=== PATIENT | female | born 1965 | race Caucasian/White ===

== ENCOUNTER 2021-11-27 11:52 | Outpatient (CLI) | payer BC, SELFPAY ==
--- NOTE | ~2021-11-27 | MM_ITS ---
EXAMINATION: MM screening melodie BI w debbie HISTORY: Screening TECHNIQUE: Craniocaudal and mediolateral oblique 3-D tomosynthesis images were obtained and synthetic 2-D images were generated. CAD analysis was submitted and interpreted. COMPARISON: Comparison to multiple prior studies sequentially, with oldest reviewed study dated 03/2012. BREAST PARENCHYMAL COMPOSITION: Breast composed of scattered areas of fibroglandular density FINDINGS: There is a new focal mass in the upper outer quadrant of the right breast with associated c alcifications. The left breast is stable without evidence for malignancy. IMPRESSION: 1. New right breast mass with associated indeterminate calcifications. 2. Additional mammographic views and possible breast ultrasound are recommended. BI-RADS Category 0: Incomplete: Needs additional imaging evaluation. Reviewed, dictated and finalized at location A. IMPRESSION: 1. New right breast mass with associated indeterminate calcifications. 2. Additional mammographic views and possible breast ultrasound are recommended . BI-RADS Category 0: Incomplete: Needs additional imaging evaluation.
== END 2021-11-27 11:53 | disposition home or self-care (01) ==
DX: Z12.31 Encounter for screening mammogram for malignant neoplasm of breast (principal); R92.8 Other abnormal and inconclusive findings on diagnostic imaging of breast
CPT/HCPCS: 77063; 77067

== ENCOUNTER 2021-12-14 11:08 | Outpatient (CLI) | payer BC, SELFPAY ==
--- NOTE | ~2021-12-14 | MM_ITS ---
EXAMINATION: MM diagnostic mammo unilat RT HISTORY: New right breast mass with calcifications reported on November 27, 2021 screening mammogram TECHNIQUE: Additional 3-D tomosynthesis images of the right breast were performed and synthetic 2-D i mages were generated. CAD analysis was submitted and interpreted. COMPARISON: 11/27/2021, 04/17/2018bilateral screening mammogram examinations FINDINGS: There is a 4 mm circumscribed mass with a calcifications relatively characteristic for fibr oadenoma. The mammographic appearance is benign. IMPRESSION: 1. BI-RADS code right 2: Benign 2. Routine annual mammographic screening is recommended. BI-RADS Category 2: Benign finding(s). Reviewed, dictated and finalized at location A.
== END 2021-12-14 11:09 | disposition home or self-care (01) ==
DX: R92.8 Other abnormal and inconclusive findings on diagnostic imaging of breast (principal)
CPT/HCPCS: 77065

== ENCOUNTER 2023-11-22 16:33 | Outpatient (CLI) | payer OTHER, SELFPAY ==
--- NOTE | ~2023-11-22 | MM_ITS ---
EXAMINATION: MM screening melodie BI w debbie HISTORY: Screening mammogram TECHNIQUE: Craniocaudal and mediolateral oblique 3-D tomosynthesis images were obtained and synthetic 2-D images were generated. CAD analysis was submitted and interpreted. COMPARISON: December 14, 2021 diagnostic right mammogram November 27, 2021, 04/17/2018 bilateral screening mammogram examinations BREAST PARENCHYMAL COMPOSITION: There are scattered areas of fibroglandular density. FINDINGS: Bilateral benign calcifications. There is no evidence of suspicious mass, calcification, or architectural distortion to suggest malignancy in either breast. There has been no suspicious interv al change. IMPRESSION: 1. No mammographic evidence of malignancy. 2. Recommend routine screening mammography in one year. BI-RADS Category 2: Benign finding(s). Reviewed, dictated and finalized at location A.
== END 2023-11-22 16:34 | disposition home or self-care (01) ==
LOC: ANHIMG 16:48
DX: Z12.31 Encounter for screening mammogram for malignant neoplasm of breast (principal)
CPT/HCPCS: 77063; 77067

== ENCOUNTER 2025-04-24 13:50 | Outpatient (CLI) | payer OTHER, SELFPAY ==
--- OUTSIDE RECORDS SUMMARY | 2009-05-22 08:00 | XMS_ITS | Continuity of Care Document ---
Author Organization [facility] Address [address] [place] [address] Phone Care Team Providers Care Motel Front Desk Attendant Name Role Phone Benjie Alanis MD Unavailable Unavailable Procedures Procedure Date Inject, spine, cervical/thoracic 2008 Fluoro For Spine Injections Office[place] visit[place], [facility] Inject, spine, cervical/thoracic 2008 Fluoro For Spine Injections Office/outpatient visit,[place], [facility] [place] Advance Directives Directive Yes / No Effective Date File Name No Information Encounters Encounter Description Practice Location Reason(s) For Visit Diagnoses Date Provider Providers Copied on Encounter [facility], [address], [id number], tel:[phone] [facility] No Information 9 Annabelle Waldrop. 1050 [facility], [address], [id number] , [place]. tel: [phone] Office/outpat ient visit,est, mod [facility], [address], [id number], [place] tel:[phone] [facility] No Information 9 Annabelle aWldrop. [address], [id number] , [place]. tel: [phone] [facility], [address] [place] [address], [id number], tel:[phone] [facility] No Information 9 Annabelle Waldrop. [address] [facility], [address], [place], [place], [id number] , [place]. tel: [phone] Office/outpat ient visit,barney borjas [facility], [address] [facility] [place], [place], [id number], [place] [phone] [facility] Outpatient No Information 9 Annabelle Waldrop. 1050 [facility], [address], [place], [place], [id number] , [place]. tel: [phone] Family History Family Member Type Diagnosis Age At Onset No Information Payers Payer name Insurance type Covered libertarian ID Alissa willoughby(s) Neo Blue Cross Blue Shiel d [facility] [id number] Social History Type Description Quantity Date Captured [...]
--- NOTE | ~2025-04-24 | MM_ITS ---
EXAMINATION: screening [facility] BI w debbie INDICATION: Asymptomatic, referred for screening mammogram COMPARISON: 11/22/2023 through 12/13/2013 TECHNIQUE: Digital Breast Tomosynthesis CC, MLO views of Both breasts were obtained with computer-aided detection to assist in interpretation of the study. FINDINGS: There are scattered areas of fibroglandular density. There are regionally distributed calcifications that spans 2.3 cm in the superior lateral, middle third in the left breast which appears to have increased in the interval. There is a group of coarse calcifications in the inner central left breast there appears to have changed in the interval. Additional group of coarse calcification that spans 0.6 cm in a linear distribution is seen at posterior third in the superior slightly lateral left breast. Elsewhere, there are no mammographic features of malignancy. IMPRESSION: 1. Left breast Incompletely characterized multiple groups of calcifications. 2. No evidence of malignancy in the Right breast. RECOMMENDATION: Left breast Diagnostic mammogram with true lateral, and appropriate magnification views. BI-RADS Category 0: Incomplete: Needs additional imaging evaluation. Reviewed, dictated and finalized at location B. IMPRESSION: 1. Left breast Incompletely characterized multiple groups of calcifications. 2. No evidence of malignancy in the Right breast. RECOMMENDATION: Left breast Diagnostic mammogram with true lateral, and appropriate magnificati on views. BI-RADS Category 0: Incomplete: Needs additional imaging evaluation.
--- OUTSIDE RECORDS SUMMARY | 2025-04-24 14:01 | XMS_ITS | Clinical Summary ---
Author Organization [facility] Larry Oro Address [address] [place] [address] Phone Care Team Providers Care Medical Records Specialist Name Role Phone Rosi Wagoner PA-C Primary Care Provider + Allergies No known active allergies Medications lisinopril (PRINIVIL) 10 mg tablet Take 10 mg by mouth daily. Active levothyroxine 100 mcg tablet Take 100 mcg by mouth daily emt b. Active citalopram (CeleXA) 40 mg tablet Take 40 mg by mouth daily. Active HYDROcodone-acet aminophen (HYCET) 7.5-325 mg/15 mL SolutionIndicati ons:Morbid obesity (CMS/HCC) Take 15 mL by mouth every 6 hours as needed for Pain, Severe. Max Daily Amount: 60 mL 300 mL 06/18/2019 1:02 PM CDT 06/17/2019 Active ondansetron (ZOFRAN ODT) 4 mg Tablet, Rapid Dissolve Place 1 Tablet (4 mg) under tongue every 6 hours as needed for Nausea. 15 Tablet 06/18/2019 1:02 PM CDT 06/17/2019 Active Active Problems Problem Noted Date Diagnosed Date Fainting spell 06/18/2019 Gastroesophageal reflux disease without esophagi tis 06/17/2019 Essential hypertension 06/17/2019 Type 2 diabetes mellitus wit hout complication, without long-term current use of insulin 06/17/2019 Morbid obesity AV block, complete Immunizations Immunization Administration Dates Next Due (ADACEL/BOOSTRIX)(10 YR UP) TDAP VACCINE, 0.5ML, IM 05/26/2010 INFLUENZA VACCINE QUADRIVALE NT 6 MOS UP IM 05/28/2015 Influenza Seasonal Unspecifi ed Formulation IM 05/20/2019,2017,05/21/2013,2011 Influenza Vaccine Tri Split 4+ Im 2016 Family History Relation Name Status Comments Father Alive Mother Alive Social History Tobacco Use Types Packs/Day Years Used Date Smoking Tobacco: Never Smokeless Tobacco: Never Alcohol Use Standard Drinks/Week Comments No 0 (1 standard drink = 0.6 oz pur e alcohol) Comments No Sex and Gender Information Value Date Recorded Sex Assigned at Not on file Legal Sex Female 3:58 PM CDT Gender Identity Not on file Sexual Orientation Not on file Last Filed Vital Signs Vital Sign Reading Time Taken Comments Blood Pressure 136/84 06/20/2019 11:42 AM CDT Pulse 72 06/20/2019 11:42 AM CDT Temperature 36.9 C (98.5 F) 06/20/2019 11:42 AM CDT Respiratory Rate 13 06/20/2019 11:42 AM CDT Oxygen Saturation 95% 06/20/2019 11:42 AM CDT Inhaled Oxygen Concentration - - Weight 103.4 kg (228 lb) 06/20/2019 3:35 AM CDT Height 167.6 cm (5' 6) 06/17/2019 3:55 PM CDT Body Mass Index 36.8 06/17/2019 3:55 PM CDT Plan of Treatment Health Maintenance Due Date Last Done Comments DIABETES ANNUAL FOOT EXAM 1985 DIABETES ANNUAL RETINAL EXAM 1985 DIABETES MICROALBUMIN ANNUAL SCREEN 1985 LDL CHOLESTEROL ANNUAL 1985 HEPATITIS B VACCINES (1 of 3 - 19+ 3-dose series) 1986 BREAST CANCER SCREENING 2007 COLORECTAL SCREENING 2012 Colorectal Cancer Screening 2012 FIT-DNA Q 3 years 2012 FIT/FOBT Q 1 year 2012 Flex Sig/CT Colonography Q 5 years 2012 ZOSTER VACCINE (1 of 2) 2017 DIABETES HBA1C Q 6 MONTHS 12/10/2019 06/10/2019 DTAP/TDAP/TD VACCINES (2 - T d or Tdap) 05/26/2020 05/26/2010 INFLUENZA VACCINE (#1) 2025 9, 05/20/2019, 2017, Additional history exists Medical Devices Implanted Type Area Ordained Minister Device Identifier Shelf Expiration Date Model / Serial / Lot Seamguard Endogia 60 Prpl [id number] - [id number] Implanted:Qt y: 2 on 06/17/2019 by Rashawn George MD at [facility] N/A: Stomach [employer] 02/24/2022 [id number] [id number] / / [id number] Seamguard Endogia 60 Blck [id number] - [id number] Implanted:Qt y: 1 on 06/17/2019 by Rashawn George MD at [facility] N/A: Stomach [employer] 04/30/2022 [id number] 60B / / [id number] Seamguard Endogia 60 Blck [id number] - [id number] Implanted:Qt y: 1 on 06/17/2019 by Rashawn George MD at [facility] Biological N/A: Stomach [employer] 01/25/2022 [id number] [id number] / / [id number] Lead Pacemaker Solia S 60 [id number] Implanted:Qt y: 1 on 06/19/2019 by Zoe Vasquez MD Lead [employer] [id number] 02/24/2021 [id number] / [id number] / Description:RV lead Lead Pacemaker Solia S 53 [id number] Implanted:Qt y: 1 on 06/19/2019 by Zoe Vasquez MD Lead [employer] [id number] 03/27/2021 [id number] / [id number] / Description:RA lead Pacemaker Devangora 8 Ada [id number] - [id number] Implanted:Qt y: 1 on 06/19/2019 by Zoe Vasquez MD Pacemaker [employer] [id number] 09/27/2020 [id number] / [id number] / Description:Device Procedures Procedure Name Priority Date/Time Associated Diagnosis Comments HEMOGLOBIN A1C Routine 06/10/2019 6:53 AM CDT Morbid obesity (CMS/HCC) from Last 3 Months or Most Recently Relevant to Health Maintenance Results * (ABNORMAL) HEMOGLOBIN A1C (06/10/2019 6:53 AM CDT) HEMOGLOBIN A1C 6.3(H) <=5.6 % 06/10/2019 9:11 AM CDT [facility] - UNA EST. AVG GLUCOSE, A1C 134 mg/dL 06/10/2019 9:11 AM CDT [facility] Blood Venipuncture / Unknown 06/10/2019 6:53 AM CDT 06/10/2019 6:53 AM CDT Narrative [facility] - 06/10/2019 9:11 AM CDT HGB A1C INTERPRETATION NORMAL: <5.7% PRE-DIABETES: 5.7 - 6.4% DIABETES: 6.5% OR GREATER us Rashawn George MD CHEMISTRY ORDERABLES Final Resul t [facility] Secoo [facility] CLIA # [id number] [facility] [address] [place] [address] from Last 3 Months or Most Recently Relevant to Health Maintenance Insurance [facility] BLUE ACCESS/TRUE BLUE PPO [employer] Advance Directives For more information, please contact: [phone] * Full Code (Latest Code Status on File) Date Activated Date Inactivated Comments 06/19/2019 10:44 AM 06/20/2019 5:36 PM * Full Code Date Activated Date Inactivated Comments 06/17/2019 3:31 PM 06/19/2019 10:44 AM * Full Code Date Activated Date Inactivated Comments 06/17/2019 1:23 PM 06/17/2019 3:31 PM * Full Code Date Activated Date Inactivated Comments 06/17/2019 11:55 AM 06/17/2019 1:23 PM Care Teams Medical Records Specialist Relationship Specialty Start Date End Date Rosi Wagoner PA-C PCP - General Physician Preservationist 06/05/19
--- OUTSIDE RECORDS SUMMARY | 2025-04-24 14:01 | XMS_ITS | Encounter Summary ---
Author Organization [facility] Address [address] [place] [address] Care Team Providers Care Environmental Manager Name Role Phone Rosi Wagoner PA-C Primary Care Provider + Encounter Details Date Type Department Care Team (Late st Contact Info) Description 06/05/2019 Abstract [facility] Operating Room [address] [place] [address] Rashawn George MD [address] [place] [address] Social History Tobacco Use Types Packs/Day Years Used Date Smoking Tobacco: Never Alcohol Use Standard Drinks/Week Comments No 0 (1 standard drink = 0.6 oz pur e alcohol) Comments No Sex and Gender Information Value Date Recorded Sex Assigned at Not on file Legal Sex Female 3:58 PM CDT Gender Identity Not on file Sexual Orientation Not on file documented as of this encounter Plan of Treatment Not on file documented as of this encounter Visit Diagnoses Not on filedocumented in this encounter Care Teams Environmental Manager Relationship Specialty Start Date End Date Rosi Wagoner PA-C PCP - General Physician Reptile Farmer 06/05/19 documented as of this encounter
--- OUTSIDE RECORDS SUMMARY | 2025-04-24 14:01 | XMS_ITS | Clinical Summary ---
Author Organization [facility] Address [address] [place] [address] Care Team Providers Care Call Worker Person Name Role Phone Rosi Wagoner Primary Care Provider [phone] Allergies Active Allergy Reactions Criticality Noted Date Comments Adhesive Unknown 04/10/2023 Erythromycin Unknown 08/30/2023 Medications levothyroxine (SYNTHROID, LEVOTHROID) 100 mcg tablet TK 1 T PO QD 2 9 Active buPROPion XL (WELLBUTRIN XL) 150 mg 24 hr tablet bupropion HCl XL 150 mg 24 hr tablet, extended release TAKE 1 TABLET BY MOUTH EVERY DAY 3 Active venlafaxine XR (EFFEXOR-XR) 37.5 mg 24 hr capsule venlafaxine ER 37.5 mg capsule,extended release 24 hr TAKE 1 CAPSULE BY MOUTH EVERY DAY Active Wegovy 2.4 mg/0.75 mL auto-injector INJECT 2.4 MG UNDER THE SKIN ONCE WEEKY 3 Active Active Problems Problem Noted Date Diagnosed Date Nonalcoholic fatty liver 02/27/2024 History of hypertension 11/01/2023 Skin lesion 10/17/2023 Elevated liver enzymes 06/26/2023 Hyperkalemia 03/13/2023 Thyroid nodule 02/17/2023 Dizziness 01/02/2023 Reduced libido 01/02/2023 Abnormal finding on mammography 12/02/2021 Abnormal laboratory test result 11/24/2021 Dysthymia 10/13/2021 AV block, complete 06/21/2019 Complete atrioventricular block 06/21/2019 Presence of cardiac pacemaker 06/19/2019 Fainting spell 06/18/2019 Gastroesophageal reflux disease without esophagi tis 06/17/2019 Reflux esophagitis 03/05/2019 Abdominal pain 03/05/2019 Acute sinusitis 03/05/2019 Common cold 03/05/2019 Constipation 03/05/2019 Contact dermatitis 03/05/2019 Cough 03/05/2019 Mixed anxiety and depressive disorder 03/05/2019 Gaseous regurgitation 03/05/2019 Hyperlipidemia 03/05/2019 Hypothyroidism 03/05/2019 Idiopathic peripheral neuropathy 03/05/2019 Impacted cerumen 03/05/2019 Malaise and fatigue 03/05/2019 Medial epicondylitis 03/05/2019 Morbid obesity 03/05/2019 Open wound of foot excluding toes 03/05/2019 Pernicious anemia 03/05/2019 Refractory migraine with aura 03/05/2019 Vomiting 03/05/2019 Healthcare maintenance 03/05/2019 Type 2 diabetes mellitus without complication Essential hypertension 03/05/2018 Migraine 03/05/2018 Multiple nodules of lung 01/24/2018 Vitamin deficiency 08/03/2017 Knee pain 08/02/2017 Vitamin B deficiency 08/02/2017 Arthralgia of shoulder 08/12/2015 Pain of upper extremity 08/12/2015 Resolved Problems Problem Noted Date Diagnosed Date Resolved Date Type 2 diabetes mellitus wit hout complication, without long-term current use of insulin 01/22/2019 05/16/2023 Immunizations Immunization Administration Dates Next Due Influenza, Quadrivalent, Spl it, Intramuscular 05/21/2019,2017,2016,05/28,05/21/2013,05/22/2012 Influenza, Quadrivalent, Spl it, Preservative Free, Intramuscular 08/04/2021,06/23/2020 Influenza, Trivalent, IM (MDV) 9,2017,2016,05/21,05/22/2012 Influenza, Unspecified 2017,05/21/2013, Tdap 08/04/2021,05/26/2010 ZOSTER Recombinant 08/04/2021 Surgical History Surgery Date Site/Laterality Comments FLUORO GUIDED INJECTION SHOULDER LEFT 12/13/2018 Lef t HYSTERECTOMY 08/28/2005 - 08/27/2006 SLEEVE GASTROPLASTY 08/28/2018 - 08/27/2019 CARDIAC PACEMAKER PLACEMENT 08/28/2018 - 08/27/2019 Medical History Medical History Date Comments Hypertension Diabetes (HCC) Family History Medical History Relation Name Comments Arthritis Father Family history of arthritis - (Added by TW Conv) Diabetes Father Family history of diabetes mellitus - (Added by TW Conv) Hypertension Father Family history of hypertension - (Added by TW Conv) Heart disease Mother Family history of cardiac disorder - (Added by TW Conv) Heart disease Other 1 Family history of cardiac disorder - Relation: Grandparent (Added by TW Conv) Cancer Other 2 Family history of malignant neoplasm - Relation: Grandparent (Added by TW Conv) Relation Name Status Comments Father Mother Other 1 Other 2 Social History Tobacco Use Types Packs/Day Years Used Date Smoking Tobacco: Never Smokeless Tobacco: Never Tobacco Cessation:Counseling Given: Not Answered Alcohol Use Standard Drinks/Week Comments Yes 0 (1 standard drink = 0.6 oz pur e alcohol) AUDIT-C Answer Date Recorded Frequency of Alcohol Consumption Not on file 04/10/2023 Q2: How many drinks containi ng alcohol do you have on a typical day when you are drinking? Patient does not drink Frequency of Binge Drinking Not on file 03/28 Comments No Sex and Gender Information Value Date Recorded Sex Assigned at Not on file Legal Sex Female 5:59 AM BRUSH HOLDER INSPECTOR Gender Identity Not on file Sexual Orientation Not on file Obstetrics History Para Term AB IAB SAB Ectopic Multiple Livin g Live Births 2 2 2 2 2 Date Outcome GA Total Labor Labor/2nd/3rd Weight Sex Type Anes PTL Rimma A1 A5 Name Clin 1989 Term F CS-Un spec Living Complications:None 1993 Term M CS-Un spec Living Complications:None Last Filed Vital Signs Vital Sign Reading Time Taken Comments Blood Pressure 116/74 10/30/2024 4:20 PM BRUSH HOLDER INSPECTOR Pulse 68 10/30/2024 4:20 PM BRUSH HOLDER INSPECTOR Temperature - - Respiratory Rate 16 10/30/2024 4:20 PM BRUSH HOLDER INSPECTOR Oxygen Saturation 96% 10/30/2024 4:20 PM BRUSH HOLDER INSPECTOR Inhaled Oxygen Concentration - - Weight 58.5 kg (129 lb) 10/30/2024 4:20 PM BRUSH HOLDER INSPECTOR Height 167.6 cm (5' 5.98) 10/30/2024 4:20 PM CS T Body Mass Index 20.83 10/30/2024 4:20 PM BRUSH HOLDER INSPECTOR Plan of Treatment Health Maintenance Due Date Last Done Comments Albumin Creatinine Ratio, Urine 1967 Depression Screening 1967 Hepatitis C Screening 1967 eGFR 1967 Dilated Eye Exam 1967 Foot Exam 1967 Hepatitis B Screening 1985 Pneumococcal vaccine <65 (1 of 2 - PCV) 1986 Breast Cancer Screening-Mammogram 05/28/2019 018 Hemoglobin A1C 12/10/2019 06/10/2019 Zoster Vaccine (2 of 2) 09/29/2021 08/04/2021 Regular Well Visit/Exam 18-64 04/10/2024 04/10/2023, 03/05/2019 Covid-19 Vaccine (3 - 2023-2 5 season) 2024 01/12/2021, 12/15/2020 Influenza Vaccine (#1) 2025 , 06/23/2020, 05/21/2019, Additional history exists Lipid Panel 10/30/2025 10/30/2024, 11/01/2023 Colon Cancer Screening-Colonoscopy 06/28/2028 06/28/2018 DTaP/Tdap/Td Vaccine (3 - Td or Tdap) 08/04/2031 08/04/2021, 05/26/2010 Cervical Cancer Screening Discontinued 08/28/2016 Colon Cancer Screening-CT Colonography Discontinued 06/28/2018 Colon Cancer Screening-DNA Stool Discontinued 06/28/20 Colon Cancer Screening-FIT Discontinued 06/28/2018 Colon Cancer Screening-Sigmoidoscopy Discontinued 06/28/2018 Medical Devices Implanted Type Area Service Girl Device Identifier Shelf Expiration Date Model / Serial / Lot Dual Chamber Pacemaker Chest Wall Procedures Procedure Name Priority Date/Time Associated Diagnosis Comments POCT LIPID PANEL Routine 10/30/2024 4:25 PM BRUSH HOLDER INSPECTOR Mixed hyperlipidemia COLONOSCOPY Routine 06/28/2018 MAMMOGRAPHY Routine 05/28/2018 PAP SMEAR WITH HPV Routine 08/28/2016 from Last 3 Months or Most Recently Relevant to Health Maintenance Results * POCT lipid panel (10/30/2024 4:25 PM BRUSH HOLDER INSPECTOR) Cholesterol, POC 148 mg/dL HDL, POC 74 mg/dL Triglycerides, POC 133 mg/dL LDL Cholesterol POC 47 mg/dL Chol/HDL Ratio, POC 2.0 Non-HDL Cholesterol, POC 74 mg/dL Cholesterol Total, POC 148 mg/dL Capillary blood 10/30/2024 4 :25 PM BRUSH HOLDER INSPECTOR Luis Enrique Williamson MD POINT OF CARE TEST ORDERABLES Final Result * COLONOSCOPY (06/28/2018) Colonoscopy Normal Historical Provider HEALTH MAINTENANCE Final Result * MAMMOGRAPHY (05/28/2018) Mammogram Normal Historical Theron [employer] HE[employer] MAINTENANCE Final Result * PAP SMEAR WITH HPV (08/28/2016) Pap smear Normal Historical Theron [employer] HE[employer] MAINTENANCE Final Result from Last 3 Months or Most Recently Relevant to Health Maintenance Insurance [facility] ACC[facility] HMO/PPO Address: [facility] [id number] [place] [address] Care Teams Call Worker Person Relationship Specialty Start Date End Date Rosi Wagoner PA PCP - General Family Practice 11/01/18
--- OUTSIDE RECORDS SUMMARY | 2025-04-24 14:01 | XMS_ITS | Patient Health Record ---
Author Organization [facility] Address [address] [place] [address] Care Team Providers Care Warehouse Puller Name Role Phone Rosi Wagoner Primary Care Provider Zoe Elkins Unavailable [phone] Allergies Allergen (clinical drug ingredient) Drug/Non Drug Allergy documented on EMR Reaction Allergy Type Onset Date Status Adhesive Unknown Allergy Active Reason For Referral No Information Medications Medication SIG (Take, Route, Frequency, Duration) Notes Start Date End Date Status Levothyroxine Sodium 100 MCG Tablet 1 tablet in the morning on an empty stomach Orally Once a day; Duration: 30 day(s) Active Lisinopril 10 MG Tablet 1 tablet Orally Once a day; Duration: 30 day(s) Active buPROPion HCl ER (XL) 150 MG Tablet Extended Release 24 Hour 1 tablet in the morning Orally Once a day; Duration: 30 day(s) Active Venlafaxine HCl ER 37.5 MG Tablet Extended Release 24 Hour 1 tablet with food Orally Once a day; Duration: 30 day(s) Active Social History Social History Additional Details Category Social Info Options Details Social History Recreational drug use: no Exercise: yes daily, walking Caffeine: yes Alcohol no Problems Problem Type SNOMED Code ICD Code Onset Dates Problem Status W/U Status Risk Notes Problem Essential hypertension (76939822) Essential (primary) hypertension (I10) Active confirmed Problem Cardiac pacemaker in situ (799941839) Presence of cardiac pacemaker (Z95.0) Active confirmed Problem Complete atrioventricular block (99644964) Atrioventricular block, complete (I44.2) Active confirmed Plan Of Treatment Pending Test Test Name Order Date Pacemaker Dual Chamber analysis 06/26/20 Pacemaker Dual Chamber analysis 12/25/19 20 Pacemaker Dual Chamber analysis 11/05/19 21 Pacemaker Dual Chamber analysis 06/16/20 21 Pacemaker Dual Chamber analysis 02/16/20 23 Insurance Providers Payer Name Payer Address Payer Phone Subscriber Number Group Number Insured Name Patient Relationship to Insured Coverage Start Date Coverage End Date KRISTI LOPEZ [address] [place] [address] [id number] Ev Escobar Self - patient is the insured Medical (General) History Medical History History ICD Code obesity s/p gastric sleeve 06/17/19 CHB s/p dual chamber PPM 06/19/19 essential hypertension hypothyroidism Covid vaccine Surgical History Surgery Date(Month/Year) Pacemaker 05/2019 gastrectomy Sleeve 05/2019 Hospitalization History Reason Date(Month/Year) pacemaker 05/2019 gastrectomy sleeve 05/2019
--- OUTSIDE RECORDS SUMMARY | 2025-04-24 14:01 | XMS_ITS | Clinical Summary ---
Author Organization [facility] Address [address] [place] [address] Care Team Providers Care Core Cleaner Name Role Phone Daniela Montanez MD Primary Care Provider [phone] Allergies No known active allergies Medications VENTOLIN HFA 108 (90 Base) MCG/ACT inhaler Inhale 2 puffs into the lungs every 4 (four) hours as needed. 0 11/19/2018 Active benzonatate 100 MG capsule TK 1 C PO Q 8 H PRN 0 11/19/2018 Active cetirizine 10 MG tablet TK 1 T PO QD PRN 0 11/19/2018 Active citalopram 40 MG tablet Take 40 mg by mouth daily. 5 01/16/2019 Active levothyroxine 100 MCG tablet Take 100 mcg by mouth daily. 5 01/16/2019 Active lisinopril 10 MG tablet Take 10 mg by mouth daily. 4 01/16/2019 Active BELVIQ 10 MG tablet Take 10 mg by mouth 2 (two) times daily. 0 01/25/2018 Active SUMAtriptan 50 MG tablet Take 50 mg by mouth 2 (two) times daily as needed. 2 03/05/2018 Active Active Problems No known active problems Social History Tobacco Use Types Packs/Day Years Used Date Smoking Tobacco: Never Smokeless Tobacco: Never Alcohol Use Standard Drinks/Week Comments Yes 0 (1 standard drink = 0.6 oz pur e alcohol) occasionally Comments Unknown Sex and Gender Information Value Date Recorded Sex Assigned at Not on file Legal Sex Female 8:29 PM CDT Gender Identity Not on file Sexual Orientation Not on file Last Filed Vital Signs Vital Sign Reading Time Taken Comments Blood Pressure 124/72 01/22/2019 9:22 AM CDT Pulse 56 01/22/2019 9:22 AM CDT Temperature 36.8 C (98.2 F) 01/22/2019 9:22 AM CDT Respiratory Rate 16 01/22/2019 9:22 AM CDT Oxygen Saturation 96% 01/22/2019 9:22 AM CDT Inhaled Oxygen Concentration - - Weight 100.7 kg (222 lb) 01/22/2019 9:22 AM CDT Height 167.6 cm (5' 6) 01/22/2019 9:22 AM CDT Body Mass Index 35.83 01/22/2019 9:22 AM CDT Plan of Treatment Health Maintenance Due Date Last Done Comments Cervical Cancer Screening Pa p Smear (Age 30 to 64) Every 3 Years 1967 Colorectal Cancer Screening Colonoscopy (10 Years) 1967 Annual Physical 1970 Hepatitis C 1985 DTaP, Tdap and Td Vaccines ( 1 - Tdap) 1986 Hepatitis B Vaccines (1 of 3 - 19+ 3-dose series) 1986 Cervical Cancer Screening Pa p with HPV Testing (Age 30 to 64) Every 5 Years 1997 Cervical Cancer Screening with HPV 1997 Mammogram Screening 2007 Pneumococcal Vaccine: 50+ Ye ars (1 of 1 - PCV) 2017 Zoster Vaccines (1 of 2) 2017 COVID-19 Vaccine (2023-2 5 season) 2024 Meningococcal B Vaccine Aged Out No l onger eligible based on patient's age to complete this topic Meningococcal Vaccine Aged Out No srini itz eligible based on patient's age to complete this topic RSV Immunizations Under 20 Months Aged Out No longer eligible based on patient's age to complete this topic Insurance [facility] Care Teams Core Cleaner Relationship Specialty Start Date End Date Daniela Montanez MD PCP - General 05/06/14
== END 2025-04-24 13:51 | disposition home or self-care (01) ==
LOC: ANHFOHIMG 13:55
DX: Z12.31 Encounter for screening mammogram for malignant neoplasm of breast (principal); R92.8 Other abnormal and inconclusive findings on diagnostic imaging of breast
CPT/HCPCS: 77063; 77067

== ENCOUNTER 2025-07-01 10:14 | Outpatient (CLI) | payer OTHER, SELFPAY ==
--- OUTSIDE RECORDS SUMMARY | 2009-05-22 07:00 | XMS_ITS | Continuity of Care Document ---
Author Organization [facility] Address [address] [place] [address] Phone Care Team Providers Care Window Shade Ring Sewer Name Role Phone Benjie Alanis MD Unavailable Unavailable Procedures Procedure Date Inject, spine, cervical/thoracic 2008 Fluoro For Spine Injections Office/outpatient visit,est, [facility] [place] 2008 Inject, spine, cervical/thoracic 2008 Fluoro For Spine Injections Office/outpatient visit,new, [facility] [place] 2008 Advance Directives Directive Yes / No Effective Date File Name No Information Encounters Encounter Description Practice Location Reason(s) For Visit Diagnoses Date Provider Providers Copied on Encounter [facility], [address], [id number], tel:[phone] [facility] No Information 9 Annabelle Waldrop. 1050 [facility], [address], [id number] , [place]. tel: [phone] Office/outpat ient visit,est, mod [facility], [address], [id number], [place] tel:[phone] [facility] No Information 9 Annabelle Waldrop. [address], [id number] , [place]. tel: [phone] [facility], [address] [place] [address], [id number], tel:[phone] [facility] No Information 9 Annabelle Waldrop. [address] [facility], [address], [place], [place], [id number] , [place]. tel: [phone] Office/outpat ient visit,barney borjas [facility], [address] [facility] [place], [place], [id number], [place] [phone] [facility] Outpatient No Information 9 Annabelle Waldrop. 1050 [facility], [address], [place], [place], [id number] , [place]. tel: [phone] Family History Family Member Type Diagnosis Age At Onset No Information Payers Payer name Insurance type Covered republican ID Alissa willoughby(s) Neo Blue Cross Blue Shiel d [facility] [id number] Social History Type Description Quantity Date Captured Comments Sex Female Smoking Status No Information Chief Complaint And Reason For Visit No Information Reason For Referral Reason For Referral No Information History Of Present Illness Encounter Date Complaint History Of Prese nt Illness No Information Functional Status Date Functional Assessmen t No Information Instructions Date Instruction Additional Infor mation No Information Assessments Type Assessment Date No Information Patient Care Teams Name Effective Dates (start - stop) Status Members No Information
--- NOTE | ~2025-07-01 | MM_ITS ---
EXAMINATION: MM diagnostic melodie LT w debbie INDICATION: 60-year old female; BI-RADS 0, all back from screening to evaluate multiple groups of calcifications in the left breast. COMPARISON: 11/22/2023. TECHNIQUE: Digital breast magnification CC and ML views of LEFT breast were obtained. FINDINGS: There are scattered areas of fibroglandular density. A group of linear branching pleomorphic microcalcifications that spans 2.6 cm seen in superior lateral LEFT breast correlates to an area of concern. A group of heterogeneous coarse calcifications in the superior central location that spans 0.7 cm. This group is new and indeterminate. A group of coarse calcifications in the inner central that spans 1.4 cm is benign. IMPRESSION: 1. Suspicious LEFT breast group of linear branching microcalcifications in the superior lateral location. Biopsy is recommended. 2. Indeterminate heterogeneous coarse calcifications in a linear distribution in the superior central. Biopsy is recommended. 3. Benign calcifications in the inner central location. RECOMMENDATION: Stereotactic biopsy of 2 groups of calcifications in the superior lateral and superior central LEFT breast. BI-RADS 4, SUSPICIOUS Reviewed, dictated and finalized at location B. RITY PROGRAM MANAGER IMPRESSION: 1. Suspicious LEFT breast group of linear branching microcalcifications in the superior lateral location. Biopsy is recommended. 2. Indeterminate heterogeneous coarse calcifications in a linear distribution in the superior central. Biopsy is recommended. 3. Benign calcifications in the inner central location. RECOMMENDATION: Stereotactic biopsy of 2 groups of calcifications in the superior lateral and s uperior central LEFT breast. BI-RADS 4, SUSPICIOUS
--- OUTSIDE RECORDS SUMMARY | 2025-07-01 11:37 | XMS_ITS | Encounter Summary ---
Author Organization [facility] Address [address] [place] [address] Care Team Providers Care Stripper Printed Circuit Boards Name Role Phone Rosi Wagoner PA-C Primary Care Provider + Encounter Details Date Type Department Care Team (Late st Contact Info) Description 06/05/2019 Abstract [facility] Operating Room [address] [address] [place] [id number] [facility] [address] [place] [id number] Social History Tobacco Use Types Packs/Day Years [...] on filedocumented in this encounter Care Teams Stripper Printed Circuit Boards Relationship Specialty Start Date End Date Rosi Wagoner PA-C PCP - General Physician Tax Manager 06/05/19 documented as of this encounter
--- OUTSIDE RECORDS SUMMARY | 2025-07-01 11:37 | XMS_ITS | Patient Health Record ---
Author Organization [facility] Address [address] [place] [address] Care Team Providers Care Hitcher Name Role Phone Rosi Wagoner Primary Care Provider Zoe Elkins Unavailable [phone] Allergies Allergen (clinical drug ingredient) Drug/Non Drug [...] W/U Status Risk Notes Problem Essential hypertension (63930659) Essential (primary) hypertension (I10) Active confirmed Problem Cardiac pacemaker in situ (573246011) Presence of cardiac pacemaker (Z95.0) Active confirmed Problem Complete atrioventricular block (83154560) Atrioventricular block, complete (I44.2) Active confirmed Plan [...] Coverage End Date KRISTI LOPEZ [address] [place] [address] [id number] Ev Escobar Self - patient is the insured Medical (General) History Medical History History ICD Code obesity s/p gastric sleeve 06/17/19 CHB s/p dual chamber PPM 06/19/19 essential hypertension hypothyroidism Covid vaccine Surgical History Surgery Date(Month/Year) Pacemaker 05/2019 gastrectomy Sleeve 05/2019 Hospitalization History Reason Date(Month/Year) pacemaker 05/2019 gastrectomy sleeve 05/2019
--- OUTSIDE RECORDS SUMMARY | 2025-07-01 11:37 | XMS_ITS | Clinical Summary ---
Author Organization [facility] Address [address] [place] [address] Care Team Providers Care Mud Engineer Name Role Phone Rosi Wagoner Primary Care Provider [phone] Allergies Active Allergy Reactions Criticality Noted Date [...] long-term current use of insulin 01/22/2019 05/16/2023 Encounters Date Type Department Care Team Description 05/20/2025 Orders Only [facility] Cardiology at [address] [address] Luis Enrique Williamson MD AV block, complete (HCC) (Primary Dx); Presence of cardiac pacemaker from Last 3 Months Immunizations Immunization Administration Dates Next Due Influenza, [...] History Medical History Date Comments Hypertension Diabetes Family History Medical History Relation Name Comments [...] on file Legal Sex Female 5:59 AM NETWORK ENGINEERING ADVISOR Gender Identity Not on file Sexual Orientation [...] Comments Blood Pressure 116/74 10/30/2024 4:20 PM NETWORK ENGINEERING ADVISOR Pulse 68 10/30/2024 4:20 PM NETWORK ENGINEERING ADVISOR Temperature - - Respiratory Rate 16 10/30/2024 4:20 PM NETWORK ENGINEERING ADVISOR Oxygen Saturation 96% 10/30/2024 4:20 PM NETWORK ENGINEERING ADVISOR Inhaled Oxygen Concentration - - Weight 58.5 kg (129 lb) 10/30/2024 4:20 PM NETWORK ENGINEERING ADVISOR Height 167.6 cm (5' 5.98) 10/30/2024 4:20 PM CS T Body Mass Index 20.83 10/30/2024 4:20 PM NETWORK ENGINEERING ADVISOR Plan of Treatment Health Maintenance Due Date [...] 04/10/2024 04/10/2023, 03/05/2019 Covid-19 Vaccine (3 - 2024-2 6 season) 2025 01/12/2021, 12/15/2020 Influenza Vaccine (#1) 2025 , [...] Discontinued 06/28/2018 Medical Devices Implanted Type Area Meeting Facilitator Device Identifier Shelf Expiration Date Model / Serial / Lot Dual Chamber Pacemaker Chest Wall Procedures Procedure Name Priority Date/Time Associated Diagnosis Comments POCT LIPID PANEL Routine 10/30/2024 4:25 PM NETWORK ENGINEERING ADVISOR Mixed hyperlipidemia COLONOSCOPY Routine 06/28/2018 MAMMOGRAPHY Routine 05/28/2018 PAP SMEAR WITH HPV Routine 08/28/2016 from Last 3 Months or Most Recently Relevant to Health Maintenance Results * POCT lipid panel (10/30/2024 4:25 PM NETWORK ENGINEERING ADVISOR) Cholesterol, POC 148 mg/dL HDL, POC 74 mg/dL Triglycerides, POC 133 mg/dL LDL Cholesterol POC 47 mg/dL Chol/HDL Ratio, POC 2.0 Non-HDL Cholesterol, POC 74 mg/dL Cholesterol Total, POC 148 mg/dL Capillary blood 10/30/2024 4 :25 PM NETWORK ENGINEERING ADVISOR Luis Enrique Williamson MD POINT OF CARE TEST ORDERABLES Final Result * COLONOSCOPY (06/28/2018) Colonoscopy Normal Historical Provider HEALTH MAINTENANCE Final Result * MAMMOGRAPHY (05/28/2018) Mammogram Normal Historical Provider HEALTH MAINTENANCE Final Result * PAP SMEAR WITH HPV (08/28/2016) Pap smear Normal Historical Provider HEALTH MAINTENANCE Final Result from Last 3 Months or Most Recently Relevant to Health Maintenance Insurance [facility] ACCESS [facility] H[facility]/PPO Address: [address] [place] [address] Care Teams Mud Engineer Relationship Specialty Start Date End Date Rosi Wagoner PA PCP - General Family Practice 11/01/18
--- OUTSIDE RECORDS SUMMARY | 2025-07-01 11:37 | XMS_ITS | Clinical Summary ---
Author Organization [facility] Address [address] [place] [address] Phone Care Team Providers Care Grocery Store Clerk Name Role Phone Rosi Wagoner PA-C Primary Care Provider + Allergies No known active allergies Medications lisinopril (PRINIVIL) 10 mg tablet Take 10 mg by mouth daily. 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 citalopram (CeleXA) 40 mg tablet Take [...] history exists Medical Devices Implanted Type Area Fish Farm Manager Device Identifier Shelf Expiration Date Model / Serial / Lot Seamguard Endogia 60 Prpl [id number] - [id number] Implanted:Qt y: 2 on 06/17/2019 by Rashawn George MD at [facility] Biological N/A: Stomach [employer] 02/24/2022 [id number] [id number] / / [id number] Seamguard Endogia 60 Blck [id number] - [id number] Implanted:Qt y: 1 on 06/17/2019 by Rashawn George MD at [facility] N/A: Stomach [employer] 04/30/2022 [id number] [id number] / / [id number] Seamguard Endogia 60 Blck [id number] - [id number] Implanted:Qt y: 1 on 06/17/2019 by Rashawn George MD at [facility] Biological N/A: Stomach [employer] 01/25/2022 [id number] [id number] / / [id number] Lead Pacemaker Solia S 60 [id number] Implanted:Qt y: 1 on 06/19/2019 by Zoe Vasquez MD Lead [employer] [id number] 02/24/2021 [id number] / [id number] / Description:RV lead Lead Pacemaker Solia S 53 [id number] Implanted:Qt y: 1 on 06/19/2019 by Zoe Vasquez MD Lead [employer] [id number] 03/27/2021 [id number] / [id number] / Description:RA lead Pacemaker Devangora 8 Ada [id number] - [id number] Implanted:Qt y: 1 on 06/19/2019 by Zoe Vasquez MD Pacemaker [employer] [id number] 09/27/2020 [id number] / [id number] / Description:Device Procedures Procedure Name Priority Date/Time Associated Diagnosis Comments HEMOGLOBIN A1C Routine 06/10/2019 6:53 AM CDT Morbid obesity (CMS/HCC) from Last 3 Months or Most Recently Relevant to Health Maintenance Results * (ABNORMAL) HEMOGLOBIN A1C (06/10/2019 6:53 AM CDT) HEMOGLOBIN A1C 6.3(H) <=5.6 % 06/10/2019 9:11 AM CDT [facility] - UNA EST. AVG GLUCOSE, A1C 134 mg/dL 06/10/2019 9:11 AM CDT [facility] Blood Venipuncture / Unknown 06/10/2019 6:53 AM CDT 06/10/2019 6:53 AM CDT Narrative [facility] - 06/10/2019 9:11 AM CDT HGB A1C INTERPRETATION NORMAL: <5.7% PRE-DIABETES: 5.7 - 6.4% DIABETES: 6.5% OR GREATER us Rashawn George MD CHEMISTRY ORDERABLES Final Resul t [facility] [employer] [facility] CLIA # [id number] [facility] [address] [place] [address] from Last 3 Months or Most Recently Relevant to Health Maintenance Insurance [facility] BLUE ACCESS/TRUE BLUE PPO [employer] Advance Directives For more information, please contact: [phone] * Full Code (Latest Code Status on File) Date Activated Date Inactivated Comments 06/19/2019 10:44 AM 06/20/2019 5:36 PM * Full Code Date Activated Date Inactivated Comments 06/17/2019 3:31 PM 06/19/2019 10:44 AM * Full Code Date Activated Date Inactivated Comments 06/17/2019 1:23 PM 06/17/2019 3:31 PM * Full Code Date Activated Date Inactivated Comments 06/17/2019 11:55 AM 06/17/2019 1:23 PM Care Teams Grocery Store Clerk Relationship Specialty Start Date End Date Rosi Wagoner PA-C PCP - General Physician Ems Educator 06/05/19
== END 2025-07-01 10:15 | disposition home or self-care (01) ==
LOC: ANHFOHIMG 10:15
DX: N63.20 Unspecified lump in the left breast, unspecified quadrant (principal); R92.8 Other abnormal and inconclusive findings on diagnostic imaging of breast
CPT/HCPCS: 77061; 77065; G0279